=== PATIENT | male | born 1960 | race Caucasian/White ===

== ENCOUNTER 2020-02-11 15:01 | Emergency (ER) | payer MEDICARE ==
[~2020-02-11] VITALS: Ht 185.4 cm; Wt 80.7 kg
[2020-02-11] MEDS ORDERED: CLINDAMYCIN PHOS 900MG/ 50ML 50 ML IV ONE (16:00)
[2020-02-11] MEDS ORDERED: CLINDAMYCIN 300MG 50 ML IV ONE (16:00)
[2020-02-11] MEDS ORDERED: CLINDAMYCIN 600MG / 50ML 50 ML IV ONE (16:00)
[2020-02-11] MEDS ORDERED: VANCOMYCIN 1GM/NS 250 ML 250 ML IV ONE (16:30)
[2020-02-11 18:21] VITALS: BP 143/88
== END 2020-02-11 18:24 | disposition home or self-care (01) ==
LOC: FSED 15:01
DX: L03.116 Cellulitis of left lower limb (principal); L03.115 Cellulitis of right lower limb; I73.9 Peripheral vascular disease, unspecified; K70.30 Alcoholic cirrhosis of liver without ascites; I87.8 Other specified disorders of veins; F17.210 Nicotine dependence, cigarettes, uncomplicated
CPT/HCPCS: 80053; 85025; 85610; 99283; J3370

== ENCOUNTER 2020-11-16 14:38 | Emergency (ER) | payer MEDICARE ==
[~2020-11-16] VITALS: Ht 185.4 cm; Wt 77.1 kg
[2020-11-16] MEDS ORDERED: KETOROLAC TROMETHAMINE 30 MG/ML VIAL IV STA (15:02)
[2020-11-16] MEDS ORDERED: PIPER-TAZ 3.375 GM 50 ML IV ONE (15:15)
[2020-11-16] MEDS ORDERED: SODIUM CHLORIDE FLUSH 10 ML SYR INJ PRN (15:15)
[2020-11-16] MEDS ORDERED: VANCOMYCIN 1GM/NS 250 ML 250 ML IV ONE (15:15)
[2020-11-16] MEDS ORDERED: PIPER-TAZ 3.375 GM 50 ML ONE (15:18)
[2020-11-16] MEDS ORDERED: KETOROLAC TROMETHAMINE 30 MG/ML VIAL ONE (15:18)
[2020-11-16] MEDS ORDERED: VANCOMYCIN 1GM/NS 250 ML 250 ML ONE (15:18)
[2020-11-16] MEDS ORDERED: METHYLPREDNISOLONE SOD SUCC 125 MG/2ML VIAL IV ONE (17:15)
[2020-11-16] MEDS ORDERED: METHYLPREDNISOLONE SOD SUCC 125 MG/2ML VIAL ONE (18:48)
[2020-11-16] MEDS ORDERED: BACTRIM DS TAB1 EACH PO (19:19)
[2020-11-16] MEDS ORDERED: PREDNISONE20 MG PO (19:19)
[2020-11-16] MEDS ORDERED: ULTRAM50 MG PO (19:19)
[2020-11-16 19:34] VITALS: BP 121/84
== END 2020-11-16 19:40 | disposition home or self-care (01) ==
LOC: FSED 14:54
DX: L03.116 Cellulitis of left lower limb (principal); M79.672 Pain in left foot; H54.7 Unspecified visual loss
CPT/HCPCS: 36415; 73630; 80053; 84550; 85025; 96374; 96376; 99284; J1885; J2543; J2930; J3370

== ENCOUNTER 2021-06-17 09:40 | Emergency (ER) | payer MEDICARE, OTHER ==
[~2021-06-17] VITALS: Ht 182.9 cm; Wt 82.1 kg
[~2021-06-17 09:40] MED LIST: BACTRIM DS TAB1 EACH PO; PREDNISONE20 MG PO; ULTRAM50 MG PO
[2021-06-17] MEDS ORDERED: CEPHALEXIN500 MG PO (09:57)
[2021-06-17] MEDS ORDERED: PREDNISONE20 MG PO (09:57)
== END 2021-06-17 10:23 | disposition home or self-care (01) ==
LOC: FSED 09:56
DX: R21 Rash and other nonspecific skin eruption (principal)
CPT/HCPCS: 99282

== ENCOUNTER 2022-08-02 14:41 | Emergency (ER) | payer MEDICARE ==
[~2022-08-02] VITALS: Ht 182.9 cm; Wt 75.4 kg
[~2022-08-02 14:41] MED LIST changes: +CEPHALEXIN500 MG PO
[2022-08-02] MEDS ORDERED: MECLIZINE HCL 12.5 MG TAB PO ONE (15:15)
[2022-08-02] MEDS ORDERED: SODIUM CHLORIDE 0.9% 1000ML 1,000 ML STA (15:29)
[2022-08-02] MEDS ORDERED: MECLIZINE HCL 12.5 MG TAB ONE (15:38)
[2022-08-02] MEDS ORDERED: SODIUM CHLORIDE 0.9% 1000ML 1,000 ML ONE (15:38)
[2022-08-02] MEDS ORDERED: MECLIZINE HCL25 MG PO (17:57)
== END 2022-08-02 18:11 | disposition home or self-care (01) ==
LOC: FSED 14:43
DX: R42 Dizziness and giddiness (principal); H54.7 Unspecified visual loss; Z20.822 Contact with and (suspected) exposure to COVID-19; F17.210 Nicotine dependence, cigarettes, uncomplicated
CPT/HCPCS: 70450; 80053; 81003; 82553; 84484; 85025; 93005; 99284; J7030; J8597; U0002

== ENCOUNTER 2024-11-13 14:23 | Emergency (ER) | payer MEDICARE ==
[~2024-11-13] VITALS: Ht 185.4 cm; Wt 86.3 kg
[~2024-11-13 14:23] MED LIST changes: +MECLIZINE HCL25 MG PO
[2024-11-13 14:25] VITALS: PULSE 113; RESP 16; TEMP 99.1
[2024-11-13] MEDS ORDERED: CEPHALEXIN500 MG PO (14:44)
[2024-11-13 14:52] VITALS: BP 145/70; PULSE 110; RESP 16; TEMP 99.1; O2SAT 95
== END 2024-11-13 14:50 | disposition home or self-care (01) ==
LOC: FSED 14:33
DX: L28.0 Lichen simplex chronicus (principal); L03.116 Cellulitis of left lower limb; L03.115 Cellulitis of right lower limb; Z86.69 Personal history of other diseases of the nervous system and sense organs
CPT/HCPCS: 99284

== ENCOUNTER 2024-12-31 13:08 | Emergency (ER) | payer MEDICARE ==
[~2024-12-31] VITALS: Ht 185.4 cm; Wt 85.8 kg
[2024-12-31] MEDS ORDERED: CLEOCIN HCL300 MG PO (13:30)
[2024-12-31 13:47] VITALS: PULSE 98; RESP 16; TEMP 98.3; O2SAT 94
== END 2024-12-31 13:47 | disposition home or self-care (01) ==
LOC: FSED 13:11
DX: L03.116 Cellulitis of left lower limb (principal); H54.61 Unqualified visual loss, right eye, normal vision left eye; H33.21 Serous retinal detachment, right eye; F17.210 Nicotine dependence, cigarettes, uncomplicated
CPT/HCPCS: 99283